=== PATIENT | female | born 1985 | race Two or more races ===

== ENCOUNTER → 2025-02-26 11:46 | Outpatient (REF) | payer OTHER, SELFPAY ==
[2025-02-26 12:22] LABS: Hematocrit 29.4 % (37.0-47.0); Hemoglobin 8.9 g/dL (12.0-16.0); Mean Corp Hgb Conc. 30.3 g/dL (33.0-37.0); Mean Corpuscular Volume 66.2 fL (81.0-99.0); Platelet Count 237 10^3/uL (130-400); Red Cell Dist. Width 19.1 % (11.5-14.5)
[2025-02-26 13:18] LABS: ALT (SGPT) 20 U/L (0-35); AST (SGOT) 25 U/L (14-36); Albumin 4.5 g/dl (3.5-5.0); Alkaline Phosphatase 62 U/L (38-126); Blood Urea Nitrogen 11 mg/dl (7-17); Calcium 8.7 mg/dl (8.4-10.2); Carbon Dioxide 26 mmol/L (22-30); Chloride 106 mmol/L (98-107); Glucose 81 mg/dl (70-99); Potassium 4.2 mmol/L (3.5-5.1); Sodium 140 mmol/L (135-145); Total Protein 7.6 g/dl (6.3-8.2); eGFR > 60.00
[2025-02-26 13:33] LABS: Vitamin D, 25-OH*** 34.8 ng/mL (30-80)
== END ==
LOC: CLINIC 11:46
PROVIDERS: ATTENDING PHYSICIAN Nurse Practitioner Adult Health
DX: Z00.00 Encounter for general adult medical examination without abnormal findings (principal)
CPT/HCPCS: 36415; 80053; 82306; 84443; 85027

== ENCOUNTER → 2025-04-06 08:50 | Outpatient (REF) | payer OTHER, SELFPAY ==
[2025-04-06 10:58] LABS: Iron 119 ug/dl (37-170)
[2025-04-06 11:07] LABS: Total Iron Binding Capacity 313 ug/dl (265-497)
[2025-04-06 11:30] LABS: Hematocrit 38.8 % (37.0-47.0); Hemoglobin 12.2 g/dL (12.0-16.0); Mean Corp Hgb Conc. 31.4 g/dL (33.0-37.0); Mean Corpuscular Volume 79.3 fL (81.0-99.0); Platelet Count 194 10^3/uL (130-400)
[2025-04-06 11:31] LABS: Ferritin 22.7 ng/ml (6.24-137)
[2025-04-06 12:23] LABS: Vitamin B12 > 1000 pg/ml (239-931)
== END ==
LOC: CLINIC 08:50
PROVIDERS: ATTENDING PHYSICIAN Nurse Practitioner Adult Health
DX: D64.9 Anemia, unspecified (principal)
CPT/HCPCS: 36415; 82607; 82728; 83540; 83550; 85027

== ENCOUNTER → 2025-05-03 14:28 | Outpatient (REF) | payer OTHER, SELFPAY ==
[2025-05-07 05:07] LABS: HPV, High Risk Not Detected; HPV, High Risk Source Cervical
== END ==
LOC: CLINIC 14:28
PROVIDERS: ATTENDING PHYSICIAN Nurse Practitioner Adult Health
DX: Z12.4 Encounter for screening for malignant neoplasm of cervix (principal)
CPT/HCPCS: 87624; G0123